=== PATIENT | male | born 1985 | race Hispanic/Latino ===

== ENCOUNTER 2017-05-02 21:03 | Observation (INO) | payer OTHER ==
[2017-05-02 22:20] LABS: BASO # 0.1 K/uL (0.0-0.2); BASO % 0.9 % (0.0-2.0); EOS # 0.2 K/uL (0.0-0.7); EOS % 3.5 % (0.0-4.0); HEMATOCRIT 46.8 % (35.0-51.0); LYMPH # 2.3 K/uL (1.0-4.3); LYMPH % 38.6 % (20.0-40.0); MEAN CELL VOLUME 92.5 fL (80.0-94.0); MEAN CORPUSCULAR HEMOGLOBIN 31.9 pg (27.0-31.0); MEAN CORPUSCULAR HGB CONC 34.5 g/dL (33.0-37.0); MEAN PLATELET VOLUME 7.5 fL (7.2-11.7); MONO # 0.4 K/uL (0.0-0.8); MONO % 6.5 % (0.0-10.0); NRBC % 0.1 % (0.0-2.0); RED CELL DISTRIBUTION WIDTH 12.9 % (11.5-14.5); WHITE BLOOD COUNT 5.9 K/uL (4.8-10.8)
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
[2017-05-02 22:27] LABS: CHLORIDE 102 mmol/L (98-107)
[2017-05-02 22:28] LABS: POTASSIUM 3.6 mmol/L (3.6-5.2); SODIUM 146 mmol/L (132-148)
[2017-05-02 22:30] LABS: BILIRUBIN,TOTAL 0.8 mg/dL (0.2-1.3); GFR AFRICAN-AMERICAN > 60
[2017-05-02 22:31] LABS: ALB/GLOB RATIO 1.5 (1.0-2.1); ALKALINE PHOSPHATASE 75 U/L (38-126); ALT/SGPT 118 U/L (21-72); AST/SGOT 113 U/L (17-59); BLOOD UREA NITROGEN 7 mg/dL (9-20); CALCIUM 8.8 mg/dl (8.6-10.4); CARBON DIOXIDE 23 mmol/L (22-30); GLUCOSE,RANDOM 90 mg/dL (75-110)
[2017-05-02 22:42] LABS: ALCOHOL SERUM 407 mg/dl (0-10)
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
[2017-05-03 04:11] VITALS: RESP 16
[2017-05-03 05:52] VITALS: BP 131/88; PULSE 110; TEMP 97.9; O2SAT 97
== END 2017-05-03 05:45 | disposition home or self-care (01) ==
LOC: EDBD 21:03 → C.ER 21:03 → C.9OBSV 23:47
PROVIDERS: ADMIT Emergency Medicine; ATTEND Emergency Medicine
DX: F10.120 Alcohol abuse with intoxication, uncomplicated (principal); S09.90XA Unspecified injury of head, initial encounter; V13.4XXA Pedal cycle driver injured in collision with car, pick-up truck or van in traffic accident, initial encounter; Y93.55 Activity, bike riding; Y90.8 Blood alcohol level of 240 mg/100 ml or more
CPT/HCPCS: 70450; 80053; 80320; 80324; 80345; 80346; 80349; 80353; 80358; 80361; 83992; 85025; 99285; G0378